=== PATIENT | female | born 1950 | race Caucasian/White ===

== ENCOUNTER → 2016-12-20 | Outpatient (CLI) | payer MEDICARE, OTHER ==
[~2016-12-20] MED LIST: ASP81TEC PO; EST45C VG; IBUP-15 PO; LSRT50T PO; MELA1TAB16 PO; MTF500T PO; PNT40TEC PO; POTA99TA7 PO; PRV20T PO; TRIA1TAB5 PO
--- OUTSIDE RECORDS SUMMARY | 2016-12-20 16:21 | XMS REPORT | Continuity of Care Document ---
Author Author [facility] Organization [facility] Address Unknown Phone Unavailable Allergies Active Description Code Type Severity Reaction Onset Reported/Identified Relationship to Patient Clinical Status Yes Sulfa (Sulfonamide Antibiotics) [id number] Drug Allergy Unknown N/A 01/31/2012 Medications Problems Date Dx Coded Attending Type Code Diagnosis Diagnosed By 04/14/2015 SAMARIA BHATIA DO Ot V76.12 08/20/2016 SAMARIA BHATIA DO Ot V76.12 OTH SCREEN MAMMO-MALIGN NEOPLASM OF [place] 08/24/2016 SAMARIA BHATIA DO Ot R59.0 LOCALIZED ENLARGED LYMPH NODES 09/11/2016 SAMARIA BHATIA DO Ot R59.0 LOCALIZED ENLARGED LYMPH NODES 09/20/2016 SAMARIA BHATIA DO Ot E04.1 NONTOXIC SINGLE THYROID NODULE Procedures Results Encounters ACCT No. Visit Date/Time Discharge Status Pt. Type Provider Facility Loc./Unit Complaint [id number] 03/15/2015 11:21:00 2014 23:59:59 CLS Outpatient SAMARIA BHATIA DO [facility] RAD SCREENING [id number] 11/27/2013 14:34:00 2013 23:59:59 CLS Outpatient [id number] 06/03/2013 10:38:00 2012 23:59:59 CLS Outpatient [id number] 05/30/2013 17:15:00 2012 12:40:00 DIS Outpatient [id number] 08/27/2016 09:28:00 ACT Outpatient SAMARIA BHATIA DO [facility] RAD COMPLEX RT THYROID NODULE [id number] 08/20/2016 10:02:00 ACT Outpatient SAMARIA BHATIA DO [facility] RAD RT SIDE LYMPHADENOPATHY SUPRACLAVICULAR
--- NOTE | 2016-12-20 17:26 | Diagnostic Imaging Report ---
INDICATION: Right knee pain. AP, oblique, and lateral views of the right knee are obtained. FINDINGS: No fracture or acute bony abnormality is seen. There is no joint effusion. There is no significant lytic or blastic lesion. There is mild medial joint space narrowing. IMPRESSION: Mild medial joint space narrowing. No acute fracture or acute bony abnormality. No overt joint effusion. Dictated by: Dictated on workstation # [id number]
== END ==
LOC: RAD 16:17
PROVIDERS: ATTEND Nurse Practitioner
DX: M25.561 Pain in right knee (principal)
CPT/HCPCS: 73562

== ENCOUNTER → 2017-09-19 | Outpatient (CLI) | payer MEDICARE, OTHER | LOC: RAD 13:08 | PROVIDERS: ATTEND Family Medicine | DX: Z12.31 Encounter for screening mammogram for malignant neoplasm of breast (principal) | CPT/HCPCS: 77067 ==

== ENCOUNTER 2017-12-11 14:00 | Outpatient (CLI) | payer MEDICARE, OTHER ==
[~2017-12-11] VITALS: Ht 172.7 cm; Wt 74.4 kg
[2017-12-11] MEDS ORDERED: AMLO5TAB2 PO (14:22)
[2017-12-11] MEDS ORDERED: PRAV40TA2 PO (14:22)
[2017-12-11] MEDS ORDERED: ASPI-586 PO (14:24)
== END 2017-12-11 14:31 ==
LOC: PREOP 14:00
PROVIDERS: ATTEND Surgery
DX: Z01.818 Encounter for other preprocedural examination (principal); Z12.11 Encounter for screening for malignant neoplasm of colon; Z80.0 Family history of malignant neoplasm of digestive organs

== ENCOUNTER 2018-07-23 21:51 | Emergency (ER) | payer MEDICARE, OTHER ==
[~2018-07-23] VITALS: Ht 175.3 cm; Wt 77.1 kg
[~2018-07-23 21:51] MED LIST changes: +AMLO5TAB7 PO; +ASPI-586 PO; +PRAV40TA2 PO
--- OUTSIDE RECORDS SUMMARY | 2018-07-23 21:57 | XMS REPORT | Continuity of Care Document ---
Author Author [facility] Organization [facility] Address Unknown Phone Unavailable Allergies Active Description Code Type Severity Reaction Onset Reported/Identified Relationship to Patient Clinical Status Yes Sulfa (Sulfonamide Antibiotics) [id number] Drug Allergy Unknown N/A 2011 Medications There is no data. Problems Date Dx Coded Attending Type Code Diagnosis Diagnosed By 04/14/2015 SAMARIA ELLIOTT DO Ot V76.12 08/20/2016 SAMARIA ELLIOTT DO S Ot V76.12 OTH SCREEN MAMMO-MALIGN NEOPLASM OF [place] 08/24/2016 SAMARIA ELLIOTT DO S Ot R59.0 LOCALIZED ENLARGED LYMPH NODES 09/11/2016 SAMARIA ELLIOTT DO S Ot R59.0 LOCALIZED ENLARGED LYMPH NODES 09/20/2016 SAMARIA ELLIOTT DO S Ot E04.1 NONTOXIC SINGLE THYROID NODULE 12/20/2016 AGATA HEWITT MANAGEMENT RETAIL INTERN Ot M25.561 PAIN IN RIGHT KNEE 01/10/2017 AGATA HEWITT MANAGEMENT RETAIL INTERN Ot M25.561 PAIN IN RIGHT KNEE 07/17/2017 AGATA HEWITT MANAGEMENT RETAIL INTERN Ot M25.561 PAIN IN RIGHT KNEE 09/18/2017 SAMARIA ELLIOTT DO S Ot Z12.31 ENCNTR SCREEN MAMMOGRAM FOR MALIGNANT NE 10/11/2017 SAMARIA ELLIOTT DO S Ot Z12.31 ENCNTR SCREEN MAMMOGRAM FOR MALIGNANT NE 12/10/2017 SAMARIA ELLIOTT DO S Ot V76.12 OTH SCREEN MAMMO-MALIGN NEOPLASM OF [place] 12/10/2017 SAMARIA ELLIOTT DO S Ot R59.0 LOCALIZED ENLARGED LYMPH NODES 12/10/2017 SAMARIA ELLIOTT DO S Ot E04.1 NONTOXIC SINGLE THYROID NODULE 12/10/2017 AGATA HEWITT MANAGEMENT RETAIL INTERN Ot M25.561 PAIN IN RIGHT KNEE 12/10/2017 SAMARIA ELLIOTT DO Ot Z12.31 ENCNTR SCREEN MAMMOGRAM FOR MALIGNANT NE 12/11/2017 NIKA NAJERA DO Ot Z01.818 ENCOUNTER FOR OTHER PREPROCEDURAL EXAMIN 12/11/2017 NIKA NAJERA DO Ot Z12.11 ENCOUNTER FOR SCREENING FOR MALIGNANT NE 12/11/2017 NIKA NAJERA DO Ot Z80.0 FAMILY HISTORY OF MALIGNANT NEOPLASM OF 12/17/2017 NIKA NAJERA DO Ot D12.2 BENIGN NEOPLASM OF ASCENDING COLON 12/17/2017 NIKA NAJERA DO Ot D12.3 BENIGN NEOPLASM OF TRANSVERSE COLON 12/17/2017 NIKA NAJERA DO Ot I10 ESSENTIAL (PRIMARY) HYPERTENSION 12/17/2017 NIKA NAJERA DO Ot K63.5 POLYP OF COLON 12/17/2017 NIKA NAJERA DO Ot K64.8 OTHER HEMORRHOIDS 12/17/2017 NIKA NAJERA DO Ot R73.03 PREDIABETES 12/17/2017 NIKA NAJERA DO Ot Z12.11 ENCOUNTER FOR SCREENING FOR MALIGNANT NE 12/17/2017 NIKA NAJERA DO Ot Z79.82 FPC (CURRENT) USE OF ASPIRIN 12/17/2017 NIKA NAJERA DO Ot Z79.899 OTHER FPC (CURRENT) DRUG THERAPY 12/17/2017 NIKA NAJERA DO Ot Z80.0 FAMILY HISTORY OF MALIGNANT NEOPLASM OF 12/25/2017 NIKA NAJERA DO Ot D12.2 BENIGN NEOPLASM OF ASCENDING COLON 12/25/2017 NIKA NAJERA DO Ot D12.3 BENIGN NEOPLASM OF TRANSVERSE COLON 12/25/2017 NIKA NAJERA DO Ot I10 ESSENTIAL (PRIMARY) HYPERTENSION 12/25/2017 NIKA NAJERA DO Ot K64.8 OTHER HEMORRHOIDS 12/25/2017 NIKA NAJERA DO Ot R73.03 PREDIABETES 12/25/2017 NIKA NAJERA DO Ot Z12.11 ENCOUNTER FOR SCREENING FOR MALIGNANT NE 12/25/2017 NIKA NAJERA DO Ot Z79.82 FPC (CURRENT) USE OF ASPIRIN 12/25/2017 NIKA NAJERA DO Ot Z79.899 OTHER FPC (CURRENT) DRUG THERAPY 12/25/2017 NIKA NAJERA DO Ot Z80.0 FAMILY HISTORY OF MALIGNANT NEOPLASM OF Procedures There is no data. Results There is no data. Encounters ACCT No. Visit Date/Time Discharge Status Pt. Type Provider Facility Loc./Unit Complaint [id number] 12/17/2017 06:51:00 12/17/2017 10:00:00 DIS Outpatient NIKA NAJERA DO [facility] ENDO SCREENING/FAMILY HX COLON CA [id number] 12/11/2017 14:00:00 12/11/2017 14:31:00 DIS Outpatient NIKA NAJERA DO [facility] PREOP COLO [id number] 09/19/2017 13:08:00 09/19/2017 23:59:59 CLS Outpatient SAMARIA ELLIOTT DO [facility] RAD SCREENING [id number] 12/20/2016 16:17:00 12/20/2016 23:59:59 CLS Outpatient AGATA HEWITT APRN [facility] RAD RT KNEE PAIN SWELLING [id number] 08/27/2016 09:28:00 08/27/2016 23:59:59 CLS Outpatient SAMARIA ELLIOTT DO [facility] RAD COMPLEX RT THYROID NODULE [id number] 08/20/2016 10:02:00 08/20/2016 23:59:59 CLS Outpatient SAMARIA ELLIOTT DO [facility] RAD RT SIDE LYMPHADENOPATHY SUPRACLAVICULAR [id number] 03/15/2015 11:21:00 03/15/2015 23:59:59 CLS Outpatient SAMARIA ELLIOTT DO [facility] RAD SCREENING [id number] 11/27/2013 14:34:00 11/27/2013 23:59:59 CLS Outpatient [id number] 06/03/2013 10:38:00 06/03/2013 23:59:59 CLS Outpatient [id number] 05/30/2013 17:15:00 06/02/2013 12:40:00 DIS Outpatient 06/201705/13/2018 12:26:15 05/13/2018 23:59:59 CLS Outpatient Samaria Elliott [facility] 03/16/2015 05:29:19 ACT Document Registration [id number] 01/02/2018 16:50:00 01/02/2018 23:59:59 [facility] Outpatient Samaria Elliott [facility]
--- OUTSIDE RECORDS SUMMARY | 2018-07-23 21:57 | XMS REPORT ---
Author Author [facility] Organization [facility] Address [address] [place] [address] Care Team Providers Care Environmental Epidemiologist Name Role Phone [facility] Unavailable PROBLEMS Unknown Problems ALLERGIES Substance Reaction Event Type Date Status sulfa stomach upset Non Drug Allergy Dec, Active ENCOUNTERS Encounter Location Date Diagnosis FORMERLY [facility] [address] [facility] [id number] [address] Dec, Fever R50.9 and Influenza B J10.1 [facility] [place] [id number], [place] [address] Dec, Encounter for immunization Z23 IMMUNIZATIONS No Known Immunizations SOCIAL HISTORY Never Assessed REASON FOR VISIT Fever Pt c/o cough, congestion, fever since Saturday STARLA Velez PLAN OF CARE Activity Details Follow Up prn Reason: VITAL SIGNS Weight 169.4 lbs 2018-01-02 Temperature 100.8 degrees Fahrenheit 2018-01-02 Heart Rate 108 bpm 2018-01-02 Respiratory Rate 20 2018-01-02 Blood pressure systolic 148 mmHg 2018-01-02 Blood pressure diastolic 82 mmHg 2018-01-02 MEDICATIONS Medication Instructions Dosage Frequency Start Date End Date Duration Status Amlodipine Besylate Active Pravastatin Sodium Active RESULTS Name Result Date Reference Range INFLUENZA A & B (IN HOUSE) 2018-01-02 INFLUENZA A negative INFLUENZA B positive Control + Lot # [id number] Exp date [id number] PROCEDURES Procedure Date Ordered Result Body Site INFLUENZA ASSAY W/OPTIC January 02, 2018 [facility] VISIT ESTABLISHED PATIENT January 02, 2018 INSTRUCTIONS MEDICATIONS ADMINISTERED No Known Medications
[2018-07-23 23:55] LABS: BILIRUBIN,URINE NEGATIVE (NEGATIVE); COLOR,URINE YELLOW; GLUCOSE, URINE (UA) NEGATIVE (NEGATIVE); KETONES,URINE 1+ (NEGATIVE); LEUKOCYTE ESTERASE ,URINE 2+ (NEGATIVE); NITRITE,URINE NEGATIVE (NEGATIVE); PH,URINE 7 (5-9); PROTEIN,URINE NEGATIVE (NEGATIVE); UROBILINOGEN,URINE NORMAL (NORMAL)
[2018-07-24 00:05] LABS: CLARITY,URINE SLIGHTLY CLOUDY; RBC,URINE 50-100 /HPF; WBC,URINE RARE /HPF
[2018-07-24 00:06] LABS: BACTERIA,URINE TRACE /HPF; SQUAMOUS EPITHELIAL CELL,UR 0-2 /HPF
[2018-07-24 00:15] VITALS: BP 159/86
[2018-07-24 00:36] LABS: BASOPHILS # (AUTO) 0.1 10^3/uL (0.0-0.1); BASOPHILS % (AUTO) 1 % (0-10); EOSINOPHILS # (AUTO) 0.1 10^3/uL (0.0-0.3); EOSINOPHILS % (AUTO) 2 % (0-10); HEMATOCRIT 38 % (35-52); HEMOGLOBIN 14.4 G/DL (11.5-16.0); LYMPHOCYTES # (AUTO) 1.7 X 10^3 (1.0-4.0); LYMPHOCYTES % (AUTO) 22 % (12-44); MEAN CORPUSCULAR HEMOGLOBIN 35 PG (25-34); MEAN CORPUSCULAR HGB CONC 38 G/DL (32-36); MEAN CORPUSCULAR VOLUME 93 FL (80-99); MEAN PLATELET VOLUME 8.9 FL (7.4-10.4); MONOCYTES % (AUTO) 13 % (0-12); NEUTROPHILS # (AUTO) 4.8 X 10^3 (1.8-7.8); NEUTROPHILS % (AUTO) 62 % (42-75); PLATELET COUNT 214 10^3/uL (130-400); RED BLOOD COUNT 4.12 10^6/uL (4.35-5.85); RED CELL DISTRIBUTION WIDTH 12.6 % (10.0-14.5); WHITE BLOOD COUNT 7.7 10^3/uL (4.3-11.0)
[2018-07-24] MEDS ORDERED: KETOROLAC 30 MG/ML VIAL IVP ONE (00:45)
[2018-07-24] MEDS ORDERED: NS IV 1000 ML 1,000 ML IV ONE (01:11)
[2018-07-24 01:14] LABS: ALBUMIN 4.2 GM/DL (3.2-4.5); BILIRUBIN,TOTAL 0.9 MG/DL (0.1-1.0); CALCIUM 9.6 MG/DL (8.5-10.1); CREATININE SERUM 1.03 MG/DL (0.60-1.30); POTASSIUM 3.6 MMOL/L (3.6-5.0); TOTAL PROTEIN 6.9 GM/DL (6.4-8.2)
[2018-07-24] MEDS ORDERED: RX-ONDANSETRON 4 MG ODT (ZOFRAN) PPK #4 SL STA (02:04)
--- NOTE | 2018-07-24 02:04 | ED Abdominal Pain ---
General Chief Complaint: Back Problems Stated Complaint: BACK PAIN, POSS BLADDER INFECTION Nursing Triage Note: states tonight around 1730 pt complaint pelvic/vaginal pain, not states back pain. pt verbalized hx of UTI's. Sepsis Screen: No Definite Risk Source of Information: Patient Exam Limitations: No Limitations History of Present Illness Date Seen by Provider: Jul 23, 2018 Time Seen by Provider: 23:24 Initial Comments This 67-year-old woman presents to the emergency room with complaints of right lower back pain and some shooting pain radiating down toward the vaginal area. She rates the pain as 6 out of 10. It hit her rather suddenly. She denies any hematuria, dysuria, fever, vomiting, diarrhea, etc. She has no history of renal stones. She has had some discomfort throughout the day but had a sudden exacerbation this evening. She has had several urinary tract infections in the past. Allergies and Home Medications Allergies Coded Allergies: Sulfa (Sulfonamide Antibiotics) (Unverified Allergy, 01/31/12) Home Medications Amlodipine Besylate 5 Mg Tablet, 5 MG PO HS, (Reported) Aspirin 81 Mg Tablet.dr, 81 MG PO HS, (Reported) Hydrocodone/Acetaminophen 1 Each Tablet, 1 EACH PO Q6H PRN for PAIN-MODERATE Prescribed by: JESSY MOBLEY on 07/24/18 020 Ondansetron 4 Mg Tab.rapdis, 4 MG SL Q4H PRN for NAUSEA/VOMITING-1ST LINE Prescribed by: JESSY MOBLEY on 07/24/18 020 Pravastatin Sodium 40 Mg Tablet, 40 MG PO HS, (Reported) Patient Home Medication List Home Medication List Reviewed: Yes Review of Systems Review of Systems Constitutional: no symptoms reported EENTM: No Symptoms Reported Respiratory: No Symptoms Reported Cardiovascular: No Symptoms Reported Gastrointestinal: No Symptoms Reported Genitourinary: See HPI Musculoskeletal: see HPI Skin: no symptoms reported Psychiatric/Neurological: No Symptoms Reported Endocrine: No Symptoms Reported Hematologic/Lymphatic: No Symptoms Reported Past Mozudzv-Mcmpix-Gghshe Hx Past Med/Social Hx: Reviewed and Corrections made Patient Social History Recent Foreign Travel: No Contact w/Someone Who Travel: No Recent Infectious Disease Expo: No Recent Hopitalizations: No Immunizations Up To Date Tetanus Booster (TDap): More than 5yrs PED Vaccines UTD: No Date of Influenza Vaccine: Aug 02, 2011 Seasonal Allergies Seasonal Allergies: No Past Medical History Surgeries: Yes Hysterectomy, Tonsillectomy Respiratory: No Currently Using CPAP: No Currently Using BIPAP: No Cardiac: Yes High Cholesterol, Hypertension Neurological: No : No Reproductive Disorders: No Female Reproductive Disorders: Denies HAZARDOUS MATERIAL SPECIALIST History: Hysterectomy Sexually Transmitted Disease: No HIV/AIDS: No Genitourinary: Yes Bladder Infection Gastrointestinal: No Irritable Bowel Musculoskeletal: No Endocrine: Yes (prediabetes) Diabetes, Non-Insulin dep HEENT: No Loss of Vision: Denies Hearing Impairment: Denies Cancer: Yes Skin Psychosocial: No Integumentary: No Adverse Reaction/Blood Tranf: No Physical Exam Vital Signs Vital Signs - First Documented 07/23/18 23:38 Temp 97.3 Pulse 97 Resp 20 B/P (MAP) 181/95 (123) Pulse Ox 97 O2 Delivery Room Air Capillary Refill : Less Than 3 Seconds Height/Weight/BMI Height: 5'9.00" Weight: 170lbs. 0.0oz. 77.767666ot; 24.9 BMI Method:Stated General Appearance: WD/WN, no apparent distress HEENT: PERRL/EOMI, normal ENT inspection Neck: normal inspection Respiratory: lungs clear, normal breath sounds, no respiratory distress, no accessory muscle use Cardiovascular: regular rate, rhythm, no edema, no murmur Gastrointestinal: normal bowel sounds, soft, tenderness (right lower quadrant) Extremities: normal inspection, no pedal edema Neurologic/Psychiatric: composition siding worker II-XII nml as tested, no motor/sensory deficits, alert, normal mood/affect, oriented x 3 Skin: normal color, warm/dry Progress/Results/Core Measures Results/Orders Lab Results Laboratory Tests Test 07/23/18 23:40 07/24/18 00:28 Range/Units Urine Color YELLOW Urine Clarity SLIGHTLY CLOUDY Urine pH 7 5-9 Urine Specific [place] 1.010 L 1.016-1.022 Urine Protein NEGATIVE NEGATIVE Urine Glucose (UA) NEGATIVE NEGATIVE Urine Ketones 1+ H NEGATIVE Urine Nitrite NEGATIVE NEGATIVE Urine Bilirubin NEGATIVE NEGATIVE Urine Urobilinogen NORMAL NORMAL MG/DL Urine Leukocyte Esterase 2+ H NEGATIVE Urine RBC (Auto) 5+ H NEGATIVE Urine RBC 50-100 H /HPF Urine WBC RARE /HPF Urine Squamous Epithelial Cells 0-2 /HPF Urine Crystals NONE /LPF Urine Bacteria TRACE /HPF Urine Casts NONE /LPF Urine Mucus NEGATIVE /LPF Urine Culture Indicated NO White Blood Count 7.7 4.3-11.0 10^3/uL Red Blood Count 4.12 L 4.35-5.85 10^6/uL Hemoglobin 14.4 11.5-16.0 G/DL Hematocrit 38 35-52 % Mean Corpuscular Volume 93 80-99 FL Mean Corpuscular Hemoglobin 35 H 25-34 PG Mean Corpuscular Hemoglobin Concent 38 H 32-36 G/DL Red Cell Distribution Width 12.6 10.0-14.5 % Platelet Count 214 130-400 10^3/uL Mean Platelet Volume 8.9 7.4-10.4 FL Neutrophils (%) (Auto) 62 42-75 % Lymphocytes (%) (Auto) 22 12-44 % Monocytes (%) (Auto) 13 H 0-12 % Eosinophils (%) (Auto) 2 0-10 % Basophils (%) (Auto) 1 0-10 % Neutrophils # (Auto) 4.8 1.8-7.8 X 10^3 Lymphocytes # (Auto) 1.7 1.0-4.0 X 10^3 Monocytes # (Auto) 1.0 0.0-1.0 X 10^3 Eosinophils # (Auto) 0.1 0.0-0.3 10^3/uL Basophils # (Auto) 0.1 0.0-0.1 10^3/uL Sodium Level 141 135-145 MMOL/L Potassium Level 3.6 3.6-5.0 MMOL/L Chloride Level 107 98-107 MMOL/L Carbon Dioxide Level 21 21-32 MMOL/L Anion Gap 13 5-14 MMOL/L Blood Urea Nitrogen 16 7-18 MG/DL Creatinine 1.03 0.60-1.30 MG/DL Estimat Glomerular Filtration Rate 53 BUN/Creatinine Ratio 16 Glucose Level 118 H 70-105 MG/DL Calcium Level 9.6 8.5-10.1 MG/DL Corrected Calcium 9.4 8.5-10.1 MG/DL Total Bilirubin 0.9 0.1-1.0 MG/DL Aspartate Amino Transf (AST/SGOT) 27 5-34 U/L Alanine Aminotransferase (ALT/SGPT) 25 0-55 U/L Alkaline Phosphatase 83 40-136 U/L Total Protein 6.9 6.4-8.2 GM/DL Albumin 4.2 3.2-4.5 GM/DL My Orders Orders - JESSY QUAN MD Ua Culture If Indicated (07/23/18 23:24) Cbc With Automated Diff (07/24/18 00:27) Comprehensive Metabolic Panel (07/24/18 00:27) Ct Abd/Pelvis Wo(Kidney Stone) (07/24/18 00:27) Ketorolac Injection (Toradol Injection) (07/24/18 00:45) Saline Lock/Iv-Start (07/24/18 01:11) Ns Iv 1000 Ml (Sodium Chloride 0.9%) (07/24/18 01:11) Abdomen/Kub 1view (07/24/18 01:46) Rx-Hydrocodone/Apap 5-325 Mg (Rx-Vicodin (07/24/18 02:15) Rx-Ondansetron Po (Rx-Zofran Po) (07/24/18 02:04) Medications Given in ED Current Medications Medications Dose Ordered Sig/Chester Route Start Time Stop Time Status Last Admin Dose Admin Acetaminophen/ Hydrocodone Bitart 1 ea Q6H PRN PO 07/24/18 02:15 07/24/18 02:19 DC 07/24/18 02:11 1 EA Ketorolac Tromethamine 15 mg ONCE ONCE IVP 07/24/18 00:45 07/24/18 00:46 DC 07/24/18 00:52 15 MG Sodium Chloride 1,000 ml @ 0 mls/hr Q0M ONCE IV 07/24/18 01:11 07/24/18 01:13 DC 07/24/18 01:21 1,000 MLS/HR Vital Signs/I&O 07/23/18 07/24/18 23:38 00:15 Temp 97.3 97.3 Pulse 97 97 Resp 20 20 B/P (MAP) 181/95 (123) 159/86 (123) Pulse Ox 97 97 O2 Delivery Room Air Blood Pressure Mean: 123 Progress Progress Note : Progress Note Patient had notable hematuria on urinalysis. Ureteral stone was suspected. CT was pursued and a right distal ureteral stone with obstruction was noted. Patient was given Toradol for pain and a liter of IV fluid was infused. There was also an incidental finding of a gallstone. There was also an incidental finding of a high density lesion on the left kidney. After review of the official radiology report after patient's departure, I contacted the patient by phone and recommended that she pursue an ultrasound study to be ordered by her primary care provider. Patient expressed understanding and will follow up with Dr. BHATIA. Take-home packs of hydrocodone and Zofran were dispensed. Diagnostic Imaging Diagonstic Imaging: CT Plain Films/CT/US/NM/MRI: abdomen, pelvis Comments CT abdomen and pelvis viewed by me and stature rad report reviewed. There is an obstructive ureteral stone measuring 4 mm in the right UVJ with associated hydronephrosis. There is incidental cholelithiasis with no evidence of cholecystitis. There is an incompletely characterized lesion of the lower of the left kidney. Diagonstic Imaging: Xray Plain Films/CT/US/NM/MRI: abdomen, pelvis Comments X-ray viewed by me. Report not yet available. There is a calcification in the right pelvis consistent with the stone seen on CT scan. Departure Impression Primary Impression: Ureteral stone with hydronephrosis Additional Impressions: Cholelithiases Qualified Codes: K80.20 - Calculus of gallbladder without cholecystitis without obstruction Renal lesion Disposition: HOME, SELF-CARE Condition: Improved Departure-Patient Inst. Decision time for Depature: 01:45 Referrals: SAMARIA BHATIA DO (PCP/Family) Primary Care Physician MELANI GOLDMAN MD Patient Instructions: Gallstones, Kidney Stones in Adults Add. Discharge Instructions: Drink plenty of clear liquids. Follow-up with your primary care provider as soon as possible. You may also follow up with the urologist of your choice. Dr. Goldman's contact information is below. Use hydrocodone as prescribed for management of pain. You may wish to take a stool softener while you take hydrocodone to prevent constipation. Use Zofran (ondansetron) as prescribed for nausea and vomiting. Strain your urine and present any stones collected to your doctors at follow-up. Return to care if symptoms worsen. All discharge instructions reviewed with patient and/or family. Voiced understanding. Scripts Hydrocodone/Acetaminophen (Hydrocodone-Acetamin 5-325 mg) 1 Each Tablet 1 EACH PO Q6H PRN for PAIN-MODERATE, #20 TAB Prov: JESSY QUAN MD 07/24/18 Ondansetron (Zofran Odt) 4 Mg Tab.rapdis 4 MG SL Q4H PRN for NAUSEA/VOMITING-1ST LINE, #10 TAB Prov: JESSY QUAN MD 07/24/18 Copy Copies To 1: SAMARIA BHATIA JOSHUA T MD Jul 24, 2018 02:04
[2018-07-24] MEDS ORDERED: HYDR-3812 PO (02:09)
[2018-07-24] MEDS ORDERED: ONDA4TAB8 SL (02:09)
[2018-07-24] MEDS ORDERED: RX-HYDROCODONE/APAP 5/325 MG #4 TAB PK PO PRN (02:15)
--- NOTE | 2018-07-24 06:40 | Diagnostic Imaging Report ---
Clinical indication: Patient with right kidney stone. Exam: KUB x-ray. Comparison: CT scan of abdomen and pelvis performed without IV contrast dated 07/24/2018. Findings and impression: 1: There is a roughly 4 mm calcification seen in the low right pelvis region which is suspected to correlate to the stone in the right UVJ region seen on comparison CT scan. Phleboliths are seen in the left side of the pelvis and correlate to the prior CT scan. 2: There is a nonobstructed bowel gas pattern. There is no evidence of abdominal free air. 3: There are mildly hypertrophic spurs seen throughout spine. Surgical clips seen overlying the left hip. Dictated by: Dictated on workstation # [id number]
--- NOTE | 2018-07-24 07:06 | Diagnostic Imaging Report ---
PROCEDURE: CT urinary tract, rule out kidney stone. TECHNIQUE: Multiple contiguous axial images were obtained through the abdomen and pelvis without the use of intravenous contrast. INDICATION: Right-sided back and pelvic pain, chronic urinary tract infections. I have no previous. Stone measuring 4.1 mm is likely at the distal aspect of the right ureterovesical junction with resultant [id number] upstream hydroureteronephrosis. The left kidney is unobstructed and there were no additional opaque stones found. Hyperdense partly exophytic nodule off the lower pole of the left kidney measures 2.6 cm. This could be complex cyst or solid mass and would require either contrasted imaging CT versus MRI or a sonographic correlation. There is a large calculus in the gallbladder without evidence for acute cholecystitis. There is a cyst in the right hepatic lobe anteriorly. The adrenals and pancreas were negative, the spleen unremarkable. The atherosclerotic aorta is nonaneurysmal. There is no bowel obstruction. There is extra ureteral pelvic phleboliths noted incidentally the uterus absent, no adnexal lesion. IMPRESSION: 1. Mild to moderate right hydroureteronephrosis secondary to a calculus almost through the distal aspect of the right UVJ, it measured 4.1 mm. No additional opaque urinary calculi. 2. Indeterminate hyperdense left renal nodule, a solid mass cannot be excluded or differentiated from complex cyst. Either contrast-enhanced imaging or correlative ultrasound needed. 3. Cholelithiasis. Dictated by: Dictated on workstation # [id number]
== END 2018-07-24 02:19 | disposition home or self-care (01) ==
LOC: EDUNIT# 21:51 → ER 21:52
DX: N13.2 Hydronephrosis with renal and ureteral calculous obstruction (principal); K80.20 Calculus of gallbladder without cholecystitis without obstruction; N28.89 Other specified disorders of kidney and ureter; E78.00 Pure hypercholesterolemia, unspecified; I10 Essential (primary) hypertension; E11.9 Type 2 diabetes mellitus without complications; Z85.828 Personal history of other malignant neoplasm of skin; Z87.19 Personal history of other diseases of the digestive system; Z87.448 Personal history of other diseases of urinary system; Z88.2 Allergy status to sulfonamides; Z79.82 Long term (current) use of aspirin; Z90.710 Acquired absence of both cervix and uterus; Z90.89 Acquired absence of other organs
CPT/HCPCS: 36415; 74018; 74176; 80053; 81000; 85025

== ENCOUNTER → 2018-08-13 | Outpatient (CLI) | payer MEDICARE, OTHER ==
[~2018-08-13] MED LIST changes: +HYDR-3812 PO; +ONDA4TAB8 SL
--- NOTE | 2018-08-13 17:21 | Diagnostic Imaging Report ---
CLINICAL INDICATION: Patient with kidney stones. EXAM: Ultrasound of both kidneys. COMPARISON: CT scan of the abdomen and pelvis performed without IV contrast dated 08/01/2018. FINDINGS: There is a 2.1 cm x 2.4 cm x 2.3 cm ill-defined slightly hyperechoic area involving the inferior pole of the left kidney which correlates to the abnormality seen on the comparison CT scan. A mass in this region is of concern, but difficult to completely delineate. Otherwise, both kidneys are normal in size, shape, echogenicity and cortical thickness without hydronephrosis, stones, or other focal lesions with the right and left kidneys measuring 11.0 cm and 10.0 cm in their craniocaudal dimensions, respectively. The bladder is decompressed and not able to be evaluated on this exam. IMPRESSION: 1: There is a 2.4 cm ill-defined slightly hyperechoic area involving the inferior pole of the left kidney which correlates to the area of abnormality on the CT scan. A renal mass is of concern and renal cell carcinoma should be excluded. If patient is unable to receive CT IV contrast, then MRI of the kidneys would be suggested to better delineate this area. 2: Otherwise, both kidneys show no other significant abnormality. Dictated by: Dictated on workstation # [id number]
== END ==
LOC: RAD 15:30
PROVIDERS: ATTEND Family Medicine
DX: N20.0 Calculus of kidney (principal)
CPT/HCPCS: 76770

== ENCOUNTER → 2018-08-29 | Outpatient (CLI) | payer MEDICARE, OTHER ==
[~2018-08-29] MED LIST changes: +IOHEXOL 350 MG/ML 100 ML (OMNIPAQUE 350) VIAL IV ONE; +NS 250 ML (IVPB) BAG IV ONE; +RECEIVED CONTRAST (Hold Metformin) IV SCH
--- NOTE | 2018-08-29 10:51 | Diagnostic Imaging Report ---
PROCEDURE: CT abdomen and pelvis with and without contrast. TECHNIQUE: Precontrast acquisitions were acquired through the abdomen and pelvis. Multiple contiguous axial images were obtained through the abdomen and pelvis after the administration of intravenous contrast. INDICATION: Left renal mass. Patient also has family history of abdominal aortic aneurysm. Correlation is made with noncontrast CT of the abdomen and pelvis from 07/24/2018 as well as renal ultrasound from 08/13/2018. The lung bases are clear. Small circumscribed low density in the right lobe of the liver at the dome measures 11 mm and is most suggestive of a cyst. No other liver masses are seen. There is a large stone within the gallbladder. No biliary ductal dilatation is seen. The pancreas and spleen are unremarkable. No adrenal mass is detected. The right kidney is unremarkable. There is an enhancing mass in the lower pole of the left kidney measuring 2.8 cm in diameter. This should be considered renal cell carcinoma until proven otherwise. No definite central retroperitoneal lymphadenopathy is seen. No renal vein involvement is seen. The aorta shows atherosclerotic changes but is non-aneurysmal. The small and large bowel loops are normal caliber. There is no ascites. Partially filled urinary bladder is unremarkable. No pelvic lymphadenopathy is seen. No definite osteolytic lesions are seen. IMPRESSION: 1. Cholelithiasis and hepatic steatosis. 2. 2.8 cm solid enhancing left lower pole renal mass. This should be considered renal cell carcinoma until proven otherwise. No definite abdominal or pelvic lymphadenopathy or evidence of metastatic disease is seen. Dictated by: Dictated on workstation # [id number]
== END ==
LOC: RAD 09:46
PROVIDERS: ATTEND Family Medicine
DX: K80.20 Calculus of gallbladder without cholecystitis without obstruction (principal); K76.0 Fatty (change of) liver, not elsewhere classified; N28.89 Other specified disorders of kidney and ureter; Z82.49 Family history of ischemic heart disease and other diseases of the circulatory system
CPT/HCPCS: 74178

== ENCOUNTER 2018-12-16 05:34 | Outpatient (CLI) | payer MEDICARE, OTHER ==
[~2018-12-16] VITALS: Ht 170.2 cm; Wt 74.8 kg
[~2018-12-16 05:34] MED LIST changes: -AMLO5TAB7 PO; +AMLO5TAB9 PO; -IOHEXOL 350 MG/ML 100 ML (OMNIPAQUE 350) VIAL IV ONE; -NS 250 ML (IVPB) BAG IV ONE; -RECEIVED CONTRAST (Hold Metformin) IV SCH
[2018-12-16] MEDS ORDERED: POTA10TA10 PO (10:13)
[2018-12-16] MEDS ORDERED: MAGN400T39 PO (10:13)
== END 2018-12-16 10:38 ==
LOC: PREOP 05:34
PROVIDERS: ATTEND Surgery
DX: Z01.818 Encounter for other preprocedural examination (principal)

== ENCOUNTER 2019-02-12 08:30 | Outpatient (CLI) | payer MEDICARE, OTHER ==
[~2019-02-12] VITALS: Ht 170.2 cm; Wt 74.8 kg
[~2019-02-12 08:30] MED LIST changes: +MAGN400T39 PO; +POTA10TA10 PO
== END 2019-02-12 10:49 | disposition home or self-care (01) ==
LOC: PREOP 08:30
PROVIDERS: ATTEND Surgery
DX: Z01.818 Encounter for other preprocedural examination (principal)

== ENCOUNTER 2019-02-17 08:56 | Day surgery (SDC) | payer MEDICARE, OTHER ==
--- NOTE | 2018-12-23 14:24 | Anesthesia-General Post-Op ---
MAC Patient Condition Mental Status/LOC: Same as Preop Cardiovascular: Satisfactory Nausea/Vomiting: Absent Respiratory: Satisfactory Pain: Controlled Complications: Absent Post Op Complications Complications None Follow Up Care/Instructions Patient Instructions None needed. Anesthesiology Discharge Order Discharge Order Patient is doing well, no complaints, stable vital signs, no apparent adverse anesthesia problems. No complications reported per nursing. CARLOS HAN CRNA Dec 23, 2018 14:24
[~2019-02-17] VITALS: Ht 170.2 cm; Wt 74.8 kg
[2019-02-17] MEDS ORDERED: LACTATED RINGERS 1,000 ML IV ONE (08:59)
[2019-02-17] MEDS ORDERED: LACTATED RINGERS 1,000 ML IV STA (09:04)
[2019-02-17 09:15] VITALS: BP 150/90
[2019-02-17] MEDS ORDERED: PROPOFOL INJECTION 50 ML IV ONE (09:22)
[2019-02-17] MEDS ORDERED: MIDAZOLAM 2 MG/2 ML (VERSED) VIAL ONE (09:22)
--- NOTE | 2019-02-17 10:06 | Progress Note-Post Operative ---
Post-Operative Progess Note Surgeon (s)/Music Executive (s) Surgeon NIKA NAJERA DO Music Executive: na Pre-Operative Diagnosis history of polyps Post-Operative Diagnosis normal colon Procedure & Operative Findings Date of Procedure 02/17/19 Procedure Performed/Findings colonoscopy Anesthesia Type per [facility] Estimated Blood Loss Estimated blood loss (mL): none Specimens/Packing Specimens Removed na NIKA NAJERA DO Feb 17, 2019 10:06
--- NOTE | 2019-02-17 10:09 | Discharge Inst-Simple/Standard ---
Discharge Inst-Standard Discharge Medications New, Converted or Re-Newed RX: RX on Chart Patient Instructions/Follow Up Plan of Care/Instructions/FU: Make follow up appointment with Dr. Matamoros for 5 years so you will get reminder. Need repeat colonoscopy in 5 years. Any issues before that be seen at that time. You do not need a follow up appointment, unless you want to discuss further. Activity as Tolerated: Yes Discharge Diet: Regular Diet NIKA MATAMOROS DO Feb 17, 2019 10:09
[2019-02-17 10:20] VITALS: BP 116/63
[2019-02-17 10:45] VITALS: BP 139/75
[2019-02-17 10:55] VITALS: BP 139/75
--- NOTE | 2019-02-17 14:18 | Anesthesia-General Post-Op ---
MAC Patient Condition Mental Status/LOC: Same as Preop Cardiovascular: Satisfactory Nausea/Vomiting: Absent Respiratory: Satisfactory Pain: Controlled Complications: Absent Post Op Complications Complications None Follow Up Care/Instructions Patient Instructions None needed. Anesthesiology Discharge Order Discharge Order Patient is doing well, no complaints, stable vital signs, no apparent adverse anesthesia problems. No complications reported per nursing. CARLOS HAN CRNA Feb 17, 2019 14:18
--- NOTE | 2019-02-17 14:47 | OPERATIVE REPORT ---
DATE OF SERVICE: 02/17/2019 PREOPERATIVE DIAGNOSIS: History of colon polyps. POSTOPERATIVE DIAGNOSIS: Normal colon. PROCEDURE: Colonoscopy. SURGEON: Nika Matamoros DO ANESTHESIA: Per MDA. ESTIMATED BLOOD LOSS: None. COMPLICATIONS: None. INDICATIONS: The patient is a 68-year-old female with history of colon polyps. She understands risks and benefits of procedure and wished to proceed with procedure. Consent was signed in the chart. DESCRIPTION OF PROCEDURE: The patient was taken to the endoscopy suite, placed in left lateral recumbent position. Timeout was performed. Digital rectal exam was performed. There were no palpable polyps, mass or ulcerations. The scope was inserted in the rectum, advanced all the way to the cecum with minimal difficulty. Prep was adequate. Scope was then slowly retracted back. There were no polyps, mass or ulceration in the cecum, ascending, transverse, descending and sigmoid colon. Once in the rectum, scope was retroflexed noting no other pathology. Scope was returned to its normal position, slowly withdrawn until completely removed. The patient tolerated procedure well without complications. She was taken to recovery room in stable condition. RECOMMENDATIONS: The patient will need repeat colonoscopy in 5 years. If she has any issues before that, be seen at that time for reevaluation. Job ID: [id number] DocumentID: [id number] Dictated Date: 02/17/2019 10:11:09 Puppet Maker Date: 02/17/2019 14:46:56 Dictated By: NIKA MATAMOROS DO
== END 2019-02-17 10:55 | disposition home or self-care (01) ==
LOC: ENDO 08:56
PROVIDERS: ATTEND Surgery
DX: Z09 Encounter for follow-up examination after completed treatment for conditions other than malignant neoplasm (principal); Z86.010 Personal history of colon polyps; Z80.0 Family history of malignant neoplasm of digestive organs; I10 Essential (primary) hypertension; E11.9 Type 2 diabetes mellitus without complications; Z79.82 Long term (current) use of aspirin; Z79.899 Other long term (current) drug therapy

== ENCOUNTER → 2019-09-24 | Outpatient (CLI) | payer MEDICARE, OTHER ==
--- NOTE | 2019-09-24 18:27 | Diagnostic Imaging Report ---
INDICATION: Routine screening. COMPARISON: Comparison is made with prior mammograms from 09/19/2017 and 03/15/2015. TECHNIQUE: 2-D and 3-D bilateral screening mammography was performed. The current study was also evaluated with a Computer Aided Detection (CAD) system. 3-D tomosynthesis was also performed and reviewed. FINDINGS: Scattered fibroglandular densities are identified bilaterally. There are scattered benign calcifications throughout both breasts. A benign nodular density in the central right breast is seen and appears stable. No spiculated mass or malignant-appearing microcalcifications are seen. Axillae are unremarkable. IMPRESSION: No mammographic features suspicious for malignancy are identified. ACR BI-RADS Category 2: Benign findings. Result letter will be mailed to the patient. Note: At least 10% of breast cancer is not imaged by mammography. Dictated by: Dictated on workstation # [id number]
== END ==
LOC: RAD 14:31
PROVIDERS: ATTEND Family Medicine
DX: Z12.31 Encounter for screening mammogram for malignant neoplasm of breast (principal)
CPT/HCPCS: 77067

== ENCOUNTER → 2021-02-06 | Outpatient (CLI) | payer MEDICARE ==
[~2021-02-06] MED LIST changes: +ACHD5005 PO; +AMLO-250 PO; -AMLO5TAB9 PO; -HYDR-3812 PO
--- NOTE | 2021-02-06 18:33 | Diagnostic Imaging Report ---
INDICATION: Palpable lump right breast. CORRELATION is made with diagnostic mammogram earlier same day. Sonographic interrogation in the area of palpable abnormality right breast was performed. There is a calcified nodule at the area of lump 1:00 location, 1 cm from the nipple. This corresponds to the benign coarse calcification noted mammographically. This measures 5 mm x 4 mm x 5 mm. No concerning sonographic abnormality is identified. IMPRESSION: BI-RADS Category 2. Benign calcification at the area of palpable abnormality in the right breast. The patient may return to routine annual screening mammography. ACR BI-RADS Category 2: Benign findings. Result letter will be mailed to the patient. Note: At least 10% of breast cancer is not imaged by mammography. Dictated by: Dictated on workstation # [id number]
--- NOTE | 2021-02-06 18:36 | Diagnostic Imaging Report ---
INDICATION: Palpable lump right breast. CORRELATION is made with prior mammograms 09/24/2019 09/19/2017. 2-D and 3-D bilateral diagnostic mammography was performed with CAD. BB marker was placed at the area of palpable abnormality in the right breast. Scattered fibroglandular densities are identified bilaterally. There are numerous benign calcifications in both breasts. No noncalcified mass is identified. No malignant appearing microcalcifications are seen. Axillae are unremarkable. IMPRESSION: BI-RADS 0 No mammographic features suspicious for malignancy are identified. Even so, directed sonographic interrogation of the area of palpable abnormality in the right breast is recommended and will be performed today. ACR BI-RADS Category 0: Incomplete. (Needs additional imaging evaluation). Result letter will be mailed to the patient. Note: At least 10% of breast cancer is not imaged by mammography. Dictated by: Dictated on workstation # [id number]
== END ==
LOC: RAD 13:30
PROVIDERS: ATTEND Family Medicine
DX: N63.10 Unspecified lump in the right breast, unspecified quadrant (principal); R91.1 Solitary pulmonary nodule
CPT/HCPCS: 76642; 77066; G0279; 77062

== ENCOUNTER → 2021-07-17 | Outpatient (CLI) | payer MEDICARE | LOC: CARD 12:08 | PROVIDERS: ATTEND Family Medicine | DX: I49.9 Cardiac arrhythmia, unspecified (principal) | CPT/HCPCS: 93005 ==

== ENCOUNTER → 2021-07-24 | Outpatient (CLI) | payer MEDICARE | LOC: CARD 11:11 | PROVIDERS: ATTEND Family Medicine | DX: I49.9 Cardiac arrhythmia, unspecified (principal) | CPT/HCPCS: 93225; 93226 ==

== ENCOUNTER → 2021-08-10 | Outpatient (CLI) | payer MEDICARE | LOC: CARD 14:00 | PROVIDERS: ATTEND Internal Medicine Cardiovascular Disease | DX: I08.2 Rheumatic disorders of both aortic and tricuspid valves (principal); I47.1 Supraventricular tachycardia | CPT/HCPCS: 93306 ==

== ENCOUNTER 2021-08-19 16:03 | Emergency (ER) | payer MEDICARE ==
[~2021-08-19] VITALS: Ht 170 cm; Wt 76.3 kg
[2021-08-19] MEDS ORDERED: TETANUS,DIPTH,PERTUSS P/F (BOOSTRIX) 0.5 ML VIAL IM ONE (16:30)
[2021-08-19] MEDS ORDERED: ACETAMINOPHEN 500 MG TAB (TYLENOL) PO ONE (16:30)
--- NOTE | 2021-08-19 16:31 | ED Fall/Injury ---
General Chief Complaint: Trauma-Non Activation Stated Complaint: FALL LIP LAC/HEAD INJURY Source: patient Exam Limitations: no limitations History of Present Illness Date Seen by Provider: Aug 19, 2021 Time Seen by Provider: 16:28 Initial Comments Patient is a 70-year-old female who presents to the emergency department today after a mechanical trip and fall outside on which she struck her head and face on the pavement. Patient also complains of an abrasion to the left knee. Unknown last tetanus. Patient states that she only takes a baby aspirin daily. She is not on any other blood thinners. No loss of consciousness is reported. Patient is not nauseated she has no complaints other than some pain in her left forehead where she struck her forehead. She denies neck pain, she denies recent illness such as fevers, chills cough or congestion. No Covid concerns. She has had a little burning with urination over the course of the last couple of weeks and is following with her primary to get a urinalysis culture results on Saturday. Patient declines repeat urinalysis here in the emergency department. Occurred: just prior to arrival Severity: mild Injuries/Pain Location: face Context: lost balance, tripped Loss of Consciousness: no loss of consciousness Associated Symptoms (Fall): Denies Symptoms Allergies and Home Medications Allergies Coded Allergies: Sulfa (Sulfonamide Antibiotics) (Unverified Allergy, Unknown, FROM CHILDHOOD, 02/17/19) Patient Home Medication List Home Medication List Reviewed: Yes Amlodipine Besylate (Amlodipine Besylate) 5 Mg Tablet, 5 MG PO HS, (Reported) Entered as Reported by: GERALDINE BANDA on 12/11/17 1422 Aspirin (Aspir 81) 81 Mg Tablet.dr, 81 MG PO HS, (Reported) Entered as Reported by: GERALDINE BANDA on 12/11/17 1424 Magnesium Oxide (Magnesium) 400 Mg Tablet, 400 MG PO DAILY, (Reported) Entered as Reported by: KEVON LEONE on 12/16/18 1013 Potassium Chloride (Potassium Chloride) 10 Meq Tablet.er, 10 MEQ PO DAILY, (Reported) Entered as Reported by: KEVON LEONE on 12/16/18 1013 Pravastatin Sodium (Pravastatin Sodium) 40 Mg Tablet, 40 MG PO HS, (Reported) Entered as Reported by: GERALDINE BANDA on 12/11/17 1422 Review of Systems Review of Systems Constitutional: see HPI Eyes: No Symptoms Reported Ears, Nose, Mouth, Throat: mouth pain (laceratin) Cardiovascular: no symptoms reported Gastrointestinal: no symptoms reported Genitourinary: no symptoms reported : No Musculoskeletal: joint pain (left knee) Skin: other (abrasions) Psychiatric/Neurological: No Symptoms Reported All Other Systems Reviewed Negative Unless Noted: Yes Past Zswntok-Ugvlht-Xeggum Hx Immunizations Up To Date Tetanus Booster (TDap): Less than 5yrs PED Vaccines UTD: No Seasonal Allergies Seasonal Allergies: No Past Medical History Surgeries: Yes (BREAST REDUCTION, MELANOMA FROM LEG, PARTIAL NEPHRECTOMY) Hysterectomy, Tonsillectomy Respiratory: No Currently Using CPAP: No Currently Using BIPAP: No Cardiac: Yes High Cholesterol, Hypertension Neurological: No Reproductive Disorders: No Female Reproductive Disorders: Denies OUTSIDE SALES ENGINEER History: Hysterectomy Sexually Transmitted Disease: No HIV/AIDS: No Genitourinary: Yes (KIDNEY CA-PARTIAL NEPHRECTOMY) Bladder Infection, Kidney Stones Gastrointestinal: Yes Irritable Bowel Musculoskeletal: No Endocrine: Yes (prediabetes) Diabetes, Non-Insulin dep HEENT: No Loss of Vision: Denies Hearing Impairment: Denies Cancer: Yes Skin, Melanoma, Kidney Did You Recieve Any Treatments: Yes What Type of Treatment Did You: Surgical Intervention Psychosocial: No Integumentary: No Blood Disorders: No Adverse Reaction/Blood Tranf: No (N/A) Physical Exam Vital Signs Vital Signs - First Documented 08/19/21 16:08 Temp 36.2 Pulse 89 Resp 18 B/P (MAP) 191/101 (131) Pulse Ox 99 O2 Delivery Room Air Capillary Refill : Height, Weight, BMI Height: 5'7.00" Weight: 165lbs. 0.0oz. 74.883337ip; 25.8 BMI Method:Stated General Appearance: WD/WN, no apparent distress HEENT: PERRL/EOMI, normal ENT inspection, TMs normal, pharynx normal, other (Large contusion/abrasion left forehead, 2 cm laceration through the vermilion border left upper lip, no dental injury/intraoral injury) Neck: non-tender, full range of motion, supple Cardiovascular: regular rate, rhythm Respiratory: lungs clear, normal breath sounds, no respiratory distress, no accessory muscle use Gastrointestinal: normal bowel sounds, non tender, soft Back: no vertebral tenderness Extremities: normal range of motion, non-tender, normal inspection, other (tenderness left anterior knee in the area of a small abrasion) Neurologic/Psychiatric: no motor/sensory deficits, alert, normal mood/affect, oriented x 3 Skin: normal color, warm/dry, other (as above) [place] Coma Score Best Eye Response: (4) Open Spontaneously Best Verbal Response: (5) Oriented Best Motor Response: (6) Obeys Commands Procedures/Interventions Wound Location: Face (mouth) Other Wound Location left upper lip Wound Length (cm): 2 Wound's Depth, Shape: superficial Wound Explored: clean Irrigated w/ Saline (ccs): 50 Anesthesia: 1% Lidocaine Volume Anesthetic (ccs): 2 Suture Size: 5-0 (fast absorbing gut 5-0 x1), 6-0 (prolene x2) Layer Closure?: 1 Progress/Results/Core Measures Results/Orders My Orders Orders - SUMMER ASKEW MD Acetaminophen Tablet (Tylenol Tablet) (08/19/21 16:30) Dipht,Pertuss(Acell),Tet Adult (Boostrix (08/19/21 16:30) Lidocaine 1% Inj 20 Ml (Xylocaine 1% Inj (08/19/21 17:00) Medications Given in ED Current Medications Medications Dose Ordered Sig/[place] Route Start Time Stop Time Status Last Admin Dose Admin Acetaminophen 1,000 mg ONCE ONCE PO 08/19/21 16:30 08/19/21 16:31 DC 08/19/21 16:34 1,000 MG Diphtheria/ Tetanus/Acell Pertussis 0.5 ml ONCE ONCE IM 08/19/21 16:30 08/19/21 16:31 DC 08/19/21 16:36 0.5 ML Lidocaine HCl 20 ml ONCE ONCE INJ 08/19/21 17:00 08/19/21 17:01 DC 08/19/21 17:01 20 ML Vital Signs/I&O 08/19/21 16:08 Temp 36.2 Pulse 89 Resp 18 B/P (MAP) 191/101 (131) Pulse Ox 99 O2 Delivery Room Air Departure Impression Primary Impression: Minor head injury Qualified Codes: S09.90XA - Unspecified injury of head, initial encounter Additional Impressions: Contusion Qualified Codes: S00.83XA - Contusion of other part of head, initial encounter Abrasion, left knee, initial encounter Laceration of lip Qualified Codes: S01.511A - Laceration without foreign body of lip, initial encounter Disposition: 01 HOME, SELF-CARE Condition: Stable Departure-Patient Inst. Decision time for Depature: 17:59 Referrals: SAMARIA BHATIA DO (PCP/Family) Primary Care Physician Patient Instructions: Closed Head Injury (DC), Laceration Repair With Stitches (DC) Add. Discharge Instructions: Take gpeg-vyk-vddwckr Tylenol extra strength 2 tablets every 6-8 hours with food as needed for headache pain. You can apply a little triple antibiotic ointment over the suture line twice daily for 2 days. The 2 blue stitches will need to be removed in 5 to 6 days. You can come back to the emergency department as part of this visit to have the stitches removed or follow-up with your primary care provider. You can wash the laceration area gently with normal soap and water. If you develop any severe headache with vomiting or problems with balance and coordination or other emergent concerning symptoms please come back to the emergency room for reevaluation. SUMMER ASKEW MD Aug 19, 2021 16:31
[2021-08-19] MEDS ORDERED: LIDOCAINE 1% INJ 20 ML 20 ML VIAL INJ ONE (17:00)
[2021-08-19 18:13] VITALS: BP 155/78
== END 2021-08-19 18:11 | disposition home or self-care (01) ==
LOC: EDUNIT# 16:03 → ER 16:05
DX: S01.511A Laceration without foreign body of lip, initial encounter (principal); S80.212A Abrasion, left knee, initial encounter; S09.90XA Unspecified injury of head, initial encounter; I10 Essential (primary) hypertension; E11.9 Type 2 diabetes mellitus without complications; E78.00 Pure hypercholesterolemia, unspecified; Z23 Encounter for immunization; Z79.82 Long term (current) use of aspirin; Z79.899 Other long term (current) drug therapy; W01.198A Fall on same level from slipping, tripping and stumbling with subsequent striking against other object, initial encounter
CPT/HCPCS: 12011; 90471; 90715

== ENCOUNTER 2021-08-25 13:44 | Emergency (ER) | payer MEDICARE ==
[~2021-08-25] VITALS: Ht 165 cm; Wt 61.0 kg
[2021-08-25 13:55] VITALS: BP 142/71
== END 2021-08-25 13:55 | disposition home or self-care (01) ==
LOC: EDUNIT# 13:44 → ER 13:47
DX: Z48.02 Encounter for removal of sutures (principal)

== ENCOUNTER → 2023-01-23 | Outpatient (CLI) | payer MEDICARE, OTHER ==
--- NOTE | 2023-01-23 19:23 | Diagnostic Imaging Report ---
INDICATION: Routine screening. COMPARISON: Prior mammograms 02/06/2021 and 09/24/2019. EXAMINATION: 2D and 3D bilateral screening mammography was performed wit CAD. The current study was also evaluated with a Computer Aided Detection (CAD) system. FINDINGS: Scattered fibroglandular densities are identified, bilaterally. Fibronodular parenchymal pattern appears stable. There are scattered benign parenchymal and vascular calcifications, bilaterally. No spiculated mass or malignant-appearing microcalcification is seen. Axillae are unremarkable. IMPRESSION: No mammographic features suspicious for malignancy are identified. ACR BI-RADS Category 2: Benign findings. Result letter will be mailed to the patient. Note: At least 10% of breast cancer is not imaged by mammography. Dictated by: Dictated on workstation # [id number]
== END ==
LOC: RAD 14:20
PROVIDERS: ATTEND Family Medicine
DX: Z12.31 Encounter for screening mammogram for malignant neoplasm of breast (principal)
CPT/HCPCS: 77063; 77067

== ENCOUNTER → 2023-09-18 | Outpatient (CLI) | payer MEDICARE ==
--- NOTE | 2023-09-18 09:53 | Diagnostic Imaging Report ---
EXAM: CERVICAL SPINE 3 VIEWS OR LESS INDICATION: Neck pain. COMPARISON: None. FINDINGS: Grade 1 retrolisthesis of C5 on C6. Vertebral body heights preserved. No fractures. Pxbg-ui-gmtvvead spondylotic changes are greatest at C5-C7. Normal prevertebral soft tissues. IMPRESSION: Wpsh-cl-ougisvjc spondylotic changes. No acute radiographic findings. Dictated by: Dictated on workstation # [id number]
== END ==
LOC: RAD 09:09
PROVIDERS: ATTEND Family Medicine
DX: M47.812 Spondylosis without myelopathy or radiculopathy, cervical region (principal)
CPT/HCPCS: 72040